=== PATIENT | female | born 1990 | race Caucasian/White ===

== ENCOUNTER 2017-08-08 09:36 | Observation (INO) | payer MEDICAID ==
[~2017-08-08] VITALS: Ht 170.2 cm; Wt 108.9 kg
[2017-08-08 10:43] LABS: CLARITY URINE CLOUDY (CLEAR); COLOR URINE YELLOW (YELLOW); KETONES URINE NEGATIVE (NEGATIVE); LEUKOCYTE ESTERASE URINE 2+ (NEGATIVE); NITRITE URINE NEGATIVE (NEGATIVE); OCCULT BLOOD URINE NEGATIVE (NEGATIVE); PROTEIN URINE NEGATIVE (NEGATIVE); SPECIFIC GRAVITY URINE 1.009 (1.005-1.030); UROBILINOGEN URINE 0.2 E.U./dL (0.2-1.0)
[2017-08-08] MEDS ORDERED: LACTATED RINGERS 1,000 ML IV SCH (12:02)
[2017-08-08] MEDS ORDERED: CEFAZOLIN 2,000 MG in DEXT 5% WATER 100 ML IV SCH (12:15)
== END 2017-08-08 12:58 | disposition home or self-care (01) ==
LOC: L&D 09:36
PROVIDERS: ADMIT Obstetrics & Gynecology; ATTEND Obstetrics & Gynecology
DX: O23.43 Unspecified infection of urinary tract in pregnancy, third trimester (principal); Z3A.34 34 weeks gestation of pregnancy
CPT/HCPCS: 81003; 96360; 99281; G0378; J0690; J7120; J7060

== ENCOUNTER 2017-09-11 23:12 | Observation (INO) | payer MEDICAID ==
[~2017-09-11] VITALS: Ht 170.2 cm; Wt 113.4 kg
[2017-09-12] MEDS ORDERED: LACTATED RINGERS 1,000 ML IV SCH (00:15)
[2017-09-12] MEDS ORDERED: PREN1TAB78 PO (07:34)
[2017-09-12] MEDS ORDERED: LIDOCAINE HCL 1% 20ML VIAL (Pyxis) INJ INFIL SCH (10:00)
[2017-09-12] MEDS ORDERED: CARBOPROST TROMETHAMINE 250 MCG/ML AMPUL IM PRN (10:00)
[2017-09-12] MEDS ORDERED: METHYLERGONOVINE MALEATE 0.2 MG/ML IM PRN (10:00)
[2017-09-12] MEDS ORDERED: FENTANYL CITRATE/PF 50MCG/ML 2ML VIAL ONE (10:23)
[2017-09-12] MEDS ORDERED: BUPIVACAINE HCL/PF 0.25% (2.5MG/ML) 10ML ONE (10:24)
[2017-09-12] MEDS ORDERED: BUPIVACAINE HCL/NS/PF EPIDURAL 100 ML EP ONE (10:24)
== END 2017-09-12 02:22 | disposition home or self-care (01) ==
LOC: L&D 23:12
PROVIDERS: ADMIT Obstetrics & Gynecology; ATTEND Obstetrics & Gynecology
DX: O26.893 Other specified pregnancy related conditions, third trimester (principal); R10.30 Lower abdominal pain, unspecified; O42.92 Full-term premature rupture of membranes, unspecified as to length of time between rupture and onset of labor; O46.93 Antepartum hemorrhage, unspecified, third trimester; Z3A.38 38 weeks gestation of pregnancy
CPT/HCPCS: 76805; 76818; 96360; 96361; 99281; G0378; J3010; J3490; J7120

== ENCOUNTER 2017-09-12 06:32 | Inpatient (IN) | payer MEDICAID ==
[~2017-09-12] VITALS: Ht 170.2 cm; Wt 113.4 kg
[2017-09-12] MEDS ORDERED: PREN1TAB78 PO (07:34)
[2017-09-12] MEDS ORDERED: LACTATED RINGERS 1,000 ML IV SCH (08:08)
[2017-09-12] MEDS: LACTATED RINGERS 1,000 ML IV SCH ×3 (09:45→17:02)
[2017-09-12 09:47] LABS: BASOPHILS % 0.2 % (0.0-2.0); HEMATOCRIT. 37.4 % (36.0-48.0); HEMOGLOBIN. 12.3 g/dL (12.0-16.0); LYMPHOCYTES % 7.3 % (20.0-50.0); MEAN CORPUSCULAR HEMOGLOBIN 30.6 pg (28.0-32.0); MEAN CORPUSCULAR VOLUME 93.3 fL (81.0-99.0); MONOCYTES % 3.7 % (2.0-8.0); NEUTROPHILS % 88.8 % (40.0-76.0); PLATELET 143 x1000/uL (130-400); RED BLOOD CELL COUNT 4.01 mill/uL (4.2-5.4); RED CELL DISTRIBUTION WIDTH 13.4 % (11.6-14.6)
[2017-09-12 09:54] LABS: INR 0.9; PARTIAL THROMBOPLASTIN TIME 28.1 sec (23.4-31.0); PROTHROMBIN TIME 9.4 sec (9.4-11.6)
[2017-09-12 09:58] LABS: CLARITY URINE CLOUDY (CLEAR); COLOR URINE YELLOW (YELLOW); KETONES URINE NEGATIVE (NEGATIVE); LEUKOCYTE ESTERASE URINE 2+ (NEGATIVE); NITRITE URINE NEGATIVE (NEGATIVE); OCCULT BLOOD URINE 2+ (NEGATIVE); PROTEIN URINE 2+ (NEGATIVE); SPECIFIC GRAVITY URINE 1.024 (1.005-1.030)
[2017-09-12 10:26] LABS: *AMPHETAMINES SCREEN URINE NEGATIVE (NEGATIVE); *BARBITURATES SCREEN URINE NEGATIVE (NEGATIVE); *BENZODIAZEPINES SCREEN URINE NEGATIVE (NEGATIVE); *COCAINE SCREEN URINE NEGATIVE (NEGATIVE)
[2017-09-12 10:27] LABS: CANNABINOID URINE SCREEN NEGATIVE (NEGATIVE); METHADONE URINE SCREEN NEGATIVE (NEGATIVE); OPIATES URINE SCREEN NEGATIVE (NEGATIVE); PHENCYCLIDINE URINE SCREEN NEGATIVE (NEGATIVE)
[2017-09-12 10:47] LABS: HEPATITIS B SURFACE ANTIGEN NEGATIVE; RUBELLA IGG 328.8 IU/mL (4.99-10)
[2017-09-12] MEDS ORDERED: LIDOCAINE HCL 1% 20ML VIAL (Pyxis) INJ INFIL PRN (12:30)
[2017-09-12] MEDS ORDERED: CARBOPROST TROMETHAMINE 250 MCG/ML AMPUL IM PRN (12:30)
[2017-09-12] MEDS ORDERED: METHYLERGONOVINE MALEATE 0.2 MG/ML IM PRN (12:30)
[2017-09-12] MEDS ORDERED: DEXT 5%/LR + PITOCIN 20UNITS/L 1,000 ML IV PRN (12:30)
[2017-09-12] MEDS ORDERED: DEXT 5%/LR + PITOCIN 20UNITS/L 1,000 ML IV SCH (17:59)
[2017-09-12] MEDS ORDERED: LANOLIN OINT 0.25 GM TUBE TOP PRN (18:00)
[2017-09-12] MEDS ORDERED: GLYCERIN/WITCH HAZEL LEAF MEDICATED PAD TOP PRN (18:00)
[2017-09-12] MEDS ORDERED: BISACODYL 10MG SUPP PR PRN (18:00)
[2017-09-12] MEDS ORDERED: IBUPROFEN 400MG TABLET PO PRN (18:00)
[2017-09-12] MEDS ORDERED: ACETAMINOPHEN WITH CODEINE 300/30MG TABLET PO PRN (18:00)
[2017-09-12] MEDS ORDERED: DIPHENHYDRAMINE 25MG CAPSULE PO PRN (18:00)
[2017-09-12] MEDS ORDERED: BENZOCAINE/LANOLIN/ALOE VERA SPRAY TOP PRN (18:00)
[2017-09-12] MEDS ORDERED: HEMORRHOIDAL SUPP PR PRN (18:00)
[2017-09-12] MEDS ORDERED: TETANUS, DIPHTHERIA, PERTUSSIS VAC/PF 0.5ML (>7YR OLD) IM ONE (18:00)
[2017-09-12 20:30] VITALS: BP 107/65
[2017-09-12 21:00] VITALS: BP 108/60
[2017-09-12 21:30] VITALS: BP 115/69
[2017-09-12 23:40] VITALS: BP 101/58
[2017-09-12] MEDS: SIMETHICONE 80MG TABLET CHEW PO SCH (23:44)
[2017-09-12] MEDS: DOCUSATE SODIUM 100MG CAPSULE PO SCH (23:44)
[2017-09-12] MEDS: ACETAMINOPHEN WITH CODEINE 300/30MG TABLET PO PRN (23:46)
[2017-09-13 07:45] VITALS: BP 111/56
[2017-09-13] MEDS: ACETAMINOPHEN WITH CODEINE 300/30MG TABLET PO PRN ×3 (08:10→16:01)
[2017-09-13] MEDS: PRENATAL VIT/FE FUMARATE/FA TABLET PO SCH (09:23)
[2017-09-13] MEDS: SIMETHICONE 80MG TABLET CHEW PO SCH ×4 (09:24→20:29)
[2017-09-13 09:49] LABS: BASOPHILS % 0.1 % (0.0-2.0); EOSINOPHILS % 0.2 % (0.0-5.0); HEMATOCRIT. 33.8 % (36.0-48.0); HEMOGLOBIN. 11.1 g/dL (12.0-16.0); LYMPHOCYTES % 12.8 % (20.0-50.0); MEAN CORPUSCULAR VOLUME 94.2 fL (81.0-99.0); MEAN PLATELET VOLUME 11.1 fl (7.4-10.4); MONOCYTES % 6.2 % (2.0-8.0); NEUTROPHILS % 80.7 % (40.0-76.0); PLATELET 138 x1000/uL (130-400); RED BLOOD CELL COUNT 3.58 mill/uL (4.2-5.4)
[2017-09-13] MEDS: FERROUS SULFATE 325MG TABLET PO SCH ×2 (13:29→18:13)
[2017-09-13] MEDS: DOCUSATE SODIUM 100MG CAPSULE PO SCH (20:28)
[2017-09-13] MEDS ORDERED: RHO(D) IMMUNE GLOBULIN 300 MCG/SYR IM NR (20:45)
[2017-09-13 22:00] VITALS: BP 114/73
[2017-09-14 06:00] VITALS: BP 109/71
[2017-09-14] MEDS ORDERED: BUPIVACAINE HCL/NS/PF EPIDURAL 100 ML EP SCH (06:30)
[2017-09-14 08:00] VITALS: BP 112/77
[2017-09-14] MEDS: PRENATAL VIT/FE FUMARATE/FA TABLET PO SCH (09:44)
[2017-09-14] MEDS: SIMETHICONE 80MG TABLET CHEW PO SCH (09:44)
[2017-09-14] MEDS: FERROUS SULFATE 325MG TABLET PO SCH (09:45)
== END 2017-09-14 11:20 | disposition home or self-care (01) | DRG 560 ==
LOC: OBSVTOIN 06:32 → L&D 06:32 → 7EST PP/OB 19:57
PROVIDERS: ADMIT Obstetrics & Gynecology; ATTEND Obstetrics & Gynecology
PROC: 0W8NXZZ Division of Female Perineum, External Approach (ICD-10-PCS; 2017-09-12)
PROC: 3E0R3BZ Introduction of Anesthetic Agent into Spinal Canal, Percutaneous Approach (ICD-10-PCS; 2017-09-12)
PROC: 00HU33Z Insertion of Infusion Device into Spinal Canal, Percutaneous Approach (ICD-10-PCS; 2017-09-12)
PROC: 10E0XZZ Delivery of Products of Conception, External Approach (ICD-10-PCS; principal; 2017-09-12 17:37)
DX: O99.214 Obesity complicating childbirth (principal); E66.9 Obesity, unspecified; O69.81X0 Labor and delivery complicated by cord around neck, without compression, not applicable or unspecified; Z37.0 Single live birth; Z3A.38 38 weeks gestation of pregnancy; Z68.39 Body mass index [BMI] 39.0-39.9, adult
CPT/HCPCS: 36415; 80305; 81003; 85025; 85610; 85730; 86592; 86703; 86762; 86850; 86886; 86900; 87086; 87340; 90384; G0378; J2590; J3490; J7120; A4315